=== PATIENT | female | born 1955 | race American Indian/Alaskan Native ===

== ENCOUNTER 2020-08-08 07:05 | Outpatient (REF) | payer OTHER, SELFPAY ==
[2020-08-08 07:26] LABS: COVID-19 Test Negative (Negative)
== END 2020-08-08 07:06 | disposition home or self-care (01) ==
LOC: HO.LAB 07:05
PROVIDERS: PCP Internal Medicine; Visit Provider Internal Medicine
DX: Z20.828 Contact with and (suspected) exposure to other viral communicable diseases (principal)
CPT/HCPCS: 87635

== ENCOUNTER 2020-12-26 13:44 | Outpatient (REF) | payer OTHER, SELFPAY | END 2020-12-26 13:45 | disposition home or self-care (01) | LOC: HO.LAB 13:44 | PROVIDERS: Visit Provider Internal Medicine | DX: Z20.822 Contact with and (suspected) exposure to COVID-19 (principal) | CPT/HCPCS: 36415; C9803; U0003; U0005 ==

== ENCOUNTER 2021-01-16 10:45 | Outpatient (REF) | payer OTHER, SELFPAY | END 2021-01-16 10:46 | disposition home or self-care (01) | LOC: HO.LAB 10:45 | PROVIDERS: Visit Provider Internal Medicine | DX: Z20.822 Contact with and (suspected) exposure to COVID-19 (principal) | CPT/HCPCS: 36415; C9803; U0003; U0005 ==

== ENCOUNTER 2021-02-05 07:49 | Outpatient (REF) | payer OTHER, SELFPAY ==
[2021-02-05 08:12] LABS: COVID-19 Test Negative (Negative)
== END 2021-02-05 07:50 | disposition home or self-care (01) ==
LOC: HO.LAB 07:49
PROVIDERS: Visit Provider Internal Medicine
DX: Z20.822 Contact with and (suspected) exposure to COVID-19 (principal)
CPT/HCPCS: 36415; 87635; C9803

== ENCOUNTER 2022-03-09 15:33 | Emergency (ER) | payer MEDICARE, MEDICAID, SELFPAY ==
[2022-03-09 15:55] VITALS: BP 130/90; PULSE 70; RESP 18; TEMP 36.1; O2SAT 98; BMI 27.3
--- NOTE | 2022-03-09 22:39 | ED.ANIMALBIT ---
HPI - Animal Bite General Chief Complaint: Wound/Laceration Stated Complaint: dog bit on rt hand finger Time Seen by Provider: 03/09/22 22:38 Source: patient Mode of arrival: ambulatory Limitations: language barrier (Albanian-speaking) History of Present Illness MD complaint: animal bite Onset (ago): hour(s) (Prior to arrival) Animal: dog Description of animal: household pet, immunizations UTD and appeared well Mechanism: bite Location - Extremities: left: hand Context: other (She accidentally took the dogs toy ball and this is when the dog bit her) Associated symptoms: none Treatments prior to arrival: irrigation Related Data Patient tetanus UTD: No Previous Rx's Medication Instructions Recorded amoxicillin 875 mg-potassium 1 tab PO BID 10 Days #20 tab 03/09/22 clavulanate 125 mg tablet Allergies Allergy/AdvReac Type Severity Reaction Status Date / Time No Known Allergies Allergy Verified 03/09/22 15:55 [No Known Allergies*] Review of Systems Review of Systems: Constitutional : No Weight loss, No Fever, No Chills, No Night Sweats, No Fatigue, No Malaise ENT/Mouth : No Hearing loss, No Ear Pain, No Nasal Congestion, No Sinus Pain, No Hoarseness, No sore throat, No Rhinorrhea, No Swallowing Difficulty Eyes: No Eye Pain, No Swelling, No Redness, No Foreign Body, No Discharge, No Vision Changes Cardiovascular : No Chest Pain, No SOB, No Dyspnea on Exertion, No Orthopnea, No Edema, No Palpitations Respiratory : No Cough, No Sputum, No Wheezing, No Smoke Exposure, No Dyspnea Gastrointestinal : No Nausea, No Vomiting, No Diarrhea, No Constipation, No abdominal Pain, No Hematochezia, No Melena Genitourinary : no irregular bleeding, No Dysuria, No Urinary Frequency, No Hematuria, No Urinary Incontinence, No Urgency, No Flank Pain, No Urinary Flow Changes, No Hesitancy Musculoskeletal : No joint pain, No Myalgias, No Joint Swelling Skin : + animal bite to left hand, No Skin Lesions, No rash Neuro : No Weakness, No Numbness, No Paresthesias, No Loss of Consciousness, No Dizziness, No Headache Psych : No Anxiety/Panic, No Depression, No SI/HI/AH/VH, No Social Issues, Heme/Lymph: No Bruising, No Bleeding,No Lymphadenopathy Endocrine : No Polyuria, No Polydipsia, No Temperature Intolerance Yes all other systems are reviewed and are negative [facility] Past Medical History Attestation statement: The following information was validated with the patient. Physical Exam ED Vital Signs: Vital Signs - 24 hr 03/09/22 15:55 Temperature 97 F Pulse Rate 70 Respiratory Rate 18 Blood Pressure 130/90 H Pulse Oximetry 98 BMI result Body Mass Index 27.3 vital signs have been reviewed as normal and appeared to be correct. Blood pressure 130/90 Heart rate normal. Respiration rate normal. Temperature normal. Oxygen saturation normal. Appearance: Alert. Oriented X3. No acute distress. Head: Normal external exam. Normocephalic. Atraumatic. Eyes: PERRLA. EOMI. Conjunctiva and sclera normal. Eyelids normal. ENT: Pharynx normal. Uvula midline. Moist mucous membranes. Normal voice. No trismus noted. No drooling noted. No muffled voice noted. Neck: Normal inspection. Neck supple. FROM. No adenopathy. No meningeal signs. CVS: Normal heart rate and rhythm. Heart sound normal. Pulses normal throughout. No murmurs/rales/gallops. Respiratory: No respiratory distress. Painless inspiration. Breath sounds normal. No wheezes/rales/rhonchi noted. Chest nontender. No accessory muscle usage noted or decreased air movement noted. Back: Full range of motion noted. Nontender. Skin: Skin warm and dry. Normal skin color. Normal skin turgor. To left hand at the 2nd to 3rd middle carpal patient has superficial bite/wound no foreign bodies and she already has the scab overlying. No streaking/induration/fluctuance or signs of infection noted. No additional rashes/lesions/lacerations noted. Extremities: Extremities exhibit normal range of motion and nontender. Neuro: Oriented X 3. No motor deficit. No sensory deficit. Reflexes normal. Normal steady gait. No focal neuro deficits noted. CN's II-XII intact bilaterally? Vascular: + radial pulses/+ 2 distal pedal pulses/+2 dorsalis pedis b/l. Normal cap refill. No cyanosis noted to upper extremity nails and lower extremity toes nails. Course Course Course Narrative: 66-year-old female reporting that she needs a tetanus vaccine after she was bit by her friend's dog who is vaccinated to rabies. She denies any thoughts of foreign bodies. She denies any bony tenderness. On exam she has superficial bite. No signs of infection or foreign body she has full range of motion no obvious ligamentous or tendon injury noted. Offered x-ray although patient refused reports that she knows there are no foreign bodies and no broken bones. Therefore at this time will update the patient's tetanus and DC home antibiotics and instructions return if any new or worsening symptoms. Patient understands agrees with this plan. MDM - Animal Bite Medical Records Attestation: I reviewed the patient's medical records. Discharge Plan Discharge Clinical Impression: Dog bite, Vaccine for tetanus toxoid Patient Disposition: Home, Self-Care Instructions: Animal Bite (ED) Prescriptions: New amoxicillin-pot clavulanate 875-125 mg tablet 1 tab PO BID 10 Days Qty: 20 0RF Referrals: Yg Corea III, MD [Primary Care Provider] - 2 days Print Language: Albanian
[2022-03-09] MEDS: Amoxicillin/Potassium Clav 875 MG TABLET PO (22:52)
[2022-03-09] MEDS: Diphth,Pertus(ACell),Tet Adult 0.5 ML SYRINGE IM (22:53)
== END 2022-03-09 22:58 | disposition home or self-care (01) ==
LOC: HO.ED 22:47
PROVIDERS: Emergency Provider Internal Medicine; PCP Internal Medicine
DX: S60.572A Other superficial bite of hand of left hand, initial encounter (principal); S60.512A Abrasion of left hand, initial encounter; S60.571A Other superficial bite of hand of right hand, initial encounter; S60.511A Abrasion of right hand, initial encounter; M79.642 Pain in left hand; M79.641 Pain in right hand; W54.0XXA Bitten by dog, initial encounter; Y93.9 Activity, unspecified; Y92.009 Unspecified place in unspecified non-institutional (private) residence as the place of occurrence of the external cause; Y99.9 Unspecified external cause status
CPT/HCPCS: 90471; 90715; 99284

== ENCOUNTER 2023-03-09 13:17 | Emergency (ER) | payer MEDICARE, MEDICAID, SELFPAY ==
--- NOTE | ~2023-03-09 | CT_ITS ---
EXAMINATION: CT ABDOMEN AND PELVIS WITH CONTRAST CLINICAL INFORMATION: Lower abdominal pain COMPARISON: None available. TECHNIQUE: Multidetector volumetric images were obtained from the superior aspect of the liver through the pubic symphysis following administration 85 mL of Omnipaque 350 intravenous contrast. Sagittal and coronal reformatted images were obtained on the technologist's workstation. Oral contrast: No This CT examination was performed using dose optimization techniques as appropriate, variously including the following: *Automated exposure control *Adjustment of mA and/or kV according to patient size (this includes techniques or standardized protocols for targeted exams where dose is matched to indication/reason for exam; i.e. extremities or head) *Use of iterative reconstruction technique DLP: 443 mGy-cm FINDINGS: LUNG BASES: The visualized lung bases are unremarkable. LIVER, GALLBLADDER, AND BILIARY TREE: The liver is normal in size, shape, and attenuation. No focal hepatic lesion or biliary ductal dilatation is present. The gallbladder is contracted but otherwise unremarkable with no evidence of radiopaque gallstones, gallbladder wall thickening, or obvious pericholecystic inflammatory changes. PANCREAS: Unremarkable. SPLEEN: Unremarkable. ADRENAL GLANDS: Unremarkable. KIDNEYS AND URETERS: The kidneys are normal in size, shape, and attenuation. Benign parapelvic renal cysts are present bilaterally, left greater than right. These need no additional imaging or follow-up. There is a 4 mm benign Bosniak class I left cortical renal cyst present which needs no additional imaging or follow-up. No solid renal masses. No hydronephrosis, hydroureter, or calculi seen. No perinephric stranding. BLADDER: Unremarkable. GASTROINTESTINAL TRACT: The small and large bowel are unremarkable aside from some scattered colonic diverticula without diverticulitis. The appendix is unremarkable. ABDOMINAL WALL: No significant hernia is appreciated. LYMPH NODES: No retroperitoneal lymphadenopathy. VASCULAR: Unremarkable. PELVIC VISCERA: The uterus is not seen. An abnormal adnexal mass or free intraperitoneal fluid is not present. OSSEOUS STRUCTURES: Unremarkable. CT/CT abdomen pelvis w IV con IMPRESSION: A cause for the patient's lower abdominal pain has not been found. Fleischner guidelines were followed.
[2023-03-09 13:52] VITALS: BP 117/87; PULSE 79; RESP 22; TEMP 36.1; O2SAT 96; BMI 26.6
--- NOTE | 2023-03-09 13:53 | ED.ABDPAIN ---
HPI - Abdominal Pain General Stated Complaint: abd pain Related Data Previous Rx's Medication Instructions Recorded amoxicillin 875 mg-potassium 1 tab PO BID 10 days #20 tabs 03/09/22 clavulanate 125 mg tablet Allergies Allergy/AdvReac Type Severity Reaction Status Date / Time No Known Allergies Allergy Verified 03/09/22 15:55 [No Known Allergies*] Course Course Course Narrative: This a rapid medical exam. Deferred additional HPI, ROS, PE to primary provider. 67 yo female pre-diabetes here with abdominal pain around umbilicus radiating to back/diarrhea, chills, nausea/vomiting x1 since 03/05. Initially had alot of diarrhea which is improving but abdominal pain has continued. No recent antibiotic use, recent travel, sick contact, hospitalization. Will check labs, UA, covid screen. VSS Discharge Plan Discharge Prescriptions: No Action amoxicillin-pot clavulanate 875-125 mg tablet 1 tab PO BID 10 Days Qty: 20 0RF
[2023-03-09 14:27] LABS: MANUAL DIFF FLAG NO
[2023-03-09 14:31] LABS: Basophils Absolute Auto 0.1 X10*3/uL (0.0-0.2); Basophils Percent Auto 0.8 % (0-2); Eosinophils Absolute Auto 0.3 X10*3/uL (0.0-0.4); Eosinophils Percent Auto 5.1 % (0-4); Hematocrit 40.3 % (37.0-47.0); Hemoglobin 13.2 g/dl (12.0-16.0); Imm Gran Abs Auto 0.02 X10*3/uL (0.00-0.03); Imm Gran Pct Auto 0.3 % (0.0-0.4); Lymphocytes Absolute Auto 1.7 X10*3/uL (1.2-4.9); Lymphocytes Percent Auto 28.6 % (20-40); Mean Corpuscular HGB Conc 32.8 g/dl (31.0-35.0); Mean Corpuscular Hemoglobin 28.6 pg (27.0-33.0); Mean Corpuscular Volume 87.4 fL (80.0-98.0); Mean Platelet Volume 11.5 fL (9.4-12.3); Monocytes Absolute Auto 0.7 X10*3/uL (0.1-1.2); Monocytes Percent Auto 12.3 % (2-11); Neutrophils Absolute Auto 3.2 x10*3/uL (2.0-8.3); Neutrophils Percent Auto 52.9 % (45-73); Platelet Count 275 X10*3/uL (160-400); Red Blood Count 4.61 X10*6/uL (4.20-5.50); Red Cell Distribution Width 12.9 % (11.0-16.0)
[2023-03-09 14:36] LABS: Appearance Urine Clear; Color Urine Yellow; Glucose Urine UA Negative (Negative); Leukocyte Esterase Urine Negative (Negative); Nitrite Urine Negative (Negative); PH 5.5 (5.0-9.0); Specific Gravity - Urine 1.025 (1.005-1.025); Urine Blood Negative (Negative); Urine Ketones Negative (Negative); Urine Protein Negative (Neg-Trace)
[2023-03-09 14:46] LABS: COVID-19 Test Negative (Negative); IDNOW Serial# BCCEAD1C
[2023-03-09 14:52] LABS: Alanine Aminotransferase 21 U/L (0-31); Albumin Level 4.3 g/dL (3.5-5.0); Alkaline Phosphatase 75 U/L (39-117); Anion Gap 10 (12-20); Aspartate Amino Transferase 20 U/L (5-31); Bilirubin Direct 0.2 mg/dL (0.0-0.5); Bilirubin Total 0.8 mg/dL (0.0-1.0); Blood Urea Nitrogen 13 mg/dL (9-16); Calcium 10.5 mg/dL (8.4-10.2); Carbon Dioxide 29 mmol/L (22-29); Chloride 105 mmol/L (96-108); Creatinine Clr Calc Pharmacy 66.7; Estimated Glomerular Filt Rate > 60; Glucose Random 89 mg/dL (60-115); Lipase 24 U/L (8-78); Potassium 3.9 mmol/L (3.3-5.1); Sodium 140 mmol/L (135-145); Total Protein 7.1 g/dL (6.5-8.0)
[2023-03-09 16:11] VITALS: BP 125/72; PULSE 52; RESP 16; O2SAT 100
[2023-03-09 17:01] VITALS: BP 126/74; PULSE 104; RESP 18; TEMP 37.1; O2SAT 99
--- NOTE | 2023-03-09 17:02 | PC.NURSE ---
Alert and oriented.States has had stomach pain for 3 days with associated diarrhea. States vomited over the weekend x1 but not today. States diarrhea has improved today but is still nauseous. No edema, sob, or chest pain noted. States pain gets worse when bending over. Tender to palpation, positive bowel sounds x 4 quadrents.
--- NOTE | 2023-03-09 17:25 | ED.ABDPAIN ---
HPI - Abdominal Pain General Chief Complaint: Abdominal Pain Stated Complaint: abd pain Time Seen by Provider: 03/09/23 16:11 Source: patient History of Present Illness HPI narrative: Patient states she has had diarrhea and abdominal pain for the past 2-3 days. She describes the pain as low abdominal pain and at times severe. Diarrhea. This morning but the pain has gotten worse. One episode of vomiting when symptoms started but none since. She is able to drink small amounts of liquid but it causes worse pain worse diarrhea. No urinary symptoms No similar symptoms in the past She has had prior colonoscopies which have been normal. Her son has a similar syndrome. Related Data Previous Rx's Medication Instructions Recorded amoxicillin 875 mg-potassium 1 tab PO BID 10 days #20 tabs 03/09/22 clavulanate 125 mg tablet ondansetron 4 mg disintegrating 4 mg PO Q8H #14 tabs 03/09/23 tablet [id number]-[id number]-wbxlpmqo-scop 5 ml PO BID PRN indigestion #50 mL 03/09/23 16.2 mg-0.1037 mg/5 mL (5 mL) elixir Allergies Allergy/AdvReac Type Severity Reaction Status Date / Time No Known Allergies Allergy Verified 03/09/23 13:57 [No Known Allergies*] Review of Systems Comments: No fevers. Positive chills Comments: No chest pain Comments: No cough. No dyspnea Gastrointestinal: Reports as per HPI Genitourinary: Reports no additional female genitourinary complaints Musculoskeletal: Reports no additional musculoskeletal complaints Comments: No rash Comments: No focal weakness. Positive general malaise [facility] Social History Social History Alcohol intake: current Alcohol intake frequency: holidays/special occasions only Use of substances other than those prescribed or required for medical reasons: No Advance Directives: No Physical Exam ED Vital Signs: Vital Signs - 24 hr 03/09/23 13:52 03/09/23 16:11 03/09/23 17:01 Temperature 96.9 F 98.8 F Pulse Rate 79 52 104 H Respiratory Rate 22 H 16 18 Blood Pressure 117/87 125/72 126/74 Pulse Oximetry 96 100 99 Oxygen Delivery Method Room Air Room Air Room Air 03/09/23 18:01 Temperature Pulse Rate 84 Respiratory Rate 18 Blood Pressure 111/67 Pulse Oximetry 99 Oxygen Delivery Method Room Air BMI result Body Mass Index 26.6 Const Other: Awake and alert. No acute distress. Vital signs stable Resp Other: Clear and equal bilaterally without wheezes rales or rhonchi Cardio Other: Regular rate and rhythm without murmurs rubs or gallops GI Other: Soft. Nondistended. Diffusely moderately tender along the whole abdomen. Maximum tenderness left lower quadrant Skin Other: Warm pink and dry with poor turgor Neuro Other: Nonfocal neuro exam Medical Decision Making Medical Decision Making MDM Narrative: Patient with gastroenteritis type symptoms but with more pain and tenderness than expected. Will order a CT scan rule out colitis or diverticulitis. She also clinically appears dehydrated. Will order IV fluids and anti emetics. 17:28. White count is normal. Electrolytes are overall normal. Calcium is 10.5 not clinically significant. Urinalysis is normal. Await CT scan and repeat evaluation 19:27. CT scan shows no obvious abnormalities. Patient is feeling much better on reexamination. She is stable for discharge home with a final diagnosis of abdominal pain secondary to gastroenteritis Lab Data 03/09/23 14:23 03/09/23 14:23 Labs: Lab Results 03/09/23 03/09/23 03/09/23 Range/Units 14:20 14:20 14:23 WBC 6.0 (4.8-10.8) X10*3/uL RBC 4.61 (4.20-5.50) X10*6/uL Hgb 13.2 (12.0-16.0) g/dl Hct 40.3 (37.0-47.0) % MCV 87.4 (80.0-98.0) fL MCH 28.6 (27.0-33.0) pg MCHC 32.8 (31.0-35.0) g/dl RDW 12.9 (11.0-16.0) % Plt Count 275 (160-400) X10*3/uL MPV 11.5 (9.4-12.3) fL Immature Gran % (Auto) 0.3 (0.0-0.4) % Neut % (Auto) 52.9 (45-73) % Lymph % (Auto) 28.6 (20-40) % Tyler % (Auto) 12.3 H (2-11) % Eos % (Auto) 5.1 H (0-4) % Baso % (Auto) 0.8 (0-2) % Lymph # (Auto) 1.7 (1.2-4.9) X10*3/uL Tyler # (Auto) 0.7 (0.1-1.2) X10*3/uL Eos # (Auto) 0.3 (0.0-0.4) X10*3/uL Baso # (Auto) 0.1 (0.0-0.2) X10*3/uL Abs Immat Gran (auto) 0.02 (0.00-0.03) X10*3/uL Absolute Neuts (auto) 3.2 (2.0-8.3) x10*3/uL Absolute Nucleated RBC 0.000 (0.0-0.012) X10*3/uL Nucleated RBC % (auto) 0.0 (0.0-0.2) /100WBC Sodium (135-145) mmol/L Potassium (3.3-5.1) mmol/L Chloride (96-108) mmol/L Carbon Dioxide (22-29) mmol/L Anion Gap (12-20) BUN (9-16) mg/dL Creatinine (0.5-1.4) mg/dL Estim Creat Clear Calc Estimated GFR Random Glucose (60-115) mg/dL Calcium (8.4-10.2) mg/dL Total Bilirubin (0.0-1.0) mg/dL Direct Bilirubin (0.0-0.5) mg/dL AST (5-31) U/L ALT (0-31) U/L Alkaline Phosphatase (39-117) U/L Total Protein (6.5-8.0) g/dL Albumin (3.5-5.0) g/dL Lipase (8-78) U/L Urine Color Yellow Urine Appearance Clear Urine pH 5.5 (5.0-9.0) Ur Specific Avella 1.025 (1.005-1.025) Urine Protein Negative (Neg-Trace) mg/dL Urine Glucose (UA) Negative (Negative) mg/dL Urine Ketones Negative (Negative) mg/dL Urine Blood Negative (Negative) Urine Nitrite Negative (Negative) Ur Leukocyte Esterase Negative (Negative) COVID-19 (IVETT) Negative (Negative) COVID-19 Clin Com See Note 03/09/23 Range/Units 14:23 WBC (4.8-10.8) X10*3/uL RBC (4.20-5.50) X10*6/uL Hgb (12.0-16.0) g/dl Hct (37.0-47.0) % MCV (80.0-98.0) fL MCH (27.0-33.0) pg MCHC (31.0-35.0) g/dl RDW (11.0-16.0) % Plt Count (160-400) X10*3/uL MPV (9.4-12.3) fL Immature Gran % (Auto) (0.0-0.4) % Neut % (Auto) (45-73) % Lymph % (Auto) (20-40) % Tyler % (Auto) (2-11) % Eos % (Auto) (0-4) % Baso % (Auto) (0-2) % Lymph # (Auto) (1.2-4.9) X10*3/uL Tyler # (Auto) (0.1-1.2) X10*3/uL Eos # (Auto) (0.0-0.4) X10*3/uL Baso # (Auto) (0.0-0.2) X10*3/uL Abs Immat Gran (auto) (0.00-0.03) X10*3/uL Absolute Neuts (auto) (2.0-8.3) x10*3/uL Absolute Nucleated RBC (0.0-0.012) X10*3/uL Nucleated RBC % (auto) (0.0-0.2) /100WBC Sodium 140 (135-145) mmol/L Potassium 3.9 (3.3-5.1) mmol/L Chloride 105 (96-108) mmol/L Carbon Dioxide 29 (22-29) mmol/L Anion Gap 10 L (12-20) BUN 13 (9-16) mg/dL Creatinine 0.71 (0.5-1.4) mg/dL Estim Creat Clear Calc 66.7 Estimated GFR > 60 Random Glucose 89 (60-115) mg/dL Calcium 10.5 H (8.4-10.2) mg/dL Total Bilirubin 0.8 (0.0-1.0) mg/dL Direct Bilirubin 0.2 (0.0-0.5) mg/dL AST 20 (5-31) U/L ALT 21 (0-31) U/L Alkaline Phosphatase 75 (39-117) U/L Total Protein 7.1 (6.5-8.0) g/dL Albumin 4.3 (3.5-5.0) g/dL Lipase 24 (8-78) U/L Urine Color Urine Appearance Urine pH (5.0-9.0) Ur Specific Av[place] (1.005-1.025) Urine Protein (Neg-Trace) mg/dL Urine Glucose (UA) (Negative) mg/dL Urine Ketones (Negative) mg/dL Urine Blood (Negative) Urine Nitrite (Negative) Ur Leukocyte Esterase (Negative) COVID-19 (IVETT) (Negative) COVID-19 Clin Com Medications Administered Discontinued Medications Generic Name Dose Route Start Last Admin Trade Name Freq PRN Reason Stop Dose Admin Sodium Chloride 1,000 mls @ 999 mls/hr 03/09/23 17:30 03/09/23 18:00 Ns IV 03/09/23 18:30 999 mls/hr .Q1H1M MARGARET Administration Iohexol 100 ml 03/09/23 17:56 03/09/23 17:56 Iohexol 350 Mg/Ml 100 Ml Infus..Btl IV 03/09/23 17:57 85 ml ONCE ONE Administration Ondansetron HCl 4 mg 03/09/23 17:22 03/09/23 18:00 Ondansetron Hcl 4 Mg/2 Ml Vial IVPUSH 03/09/23 17:23 4 mg ONCE ONE Administration Discharge Plan Discharge Clinical Impression: Gastroenteritis, Abdominal pain Patient Disposition: Home, Self-Care Instructions: Gastroenteritis (ED), Abdominal Pain (ED) Prescriptions: New ondansetron 4 mg tablet,disintegrating 4 mg PO Q8H Qty: 14 0RF [id number]-lwsabp-ecrkgktc-scop 16.2 mg-0.1037 mg/5 mL (5 mL) elixir 5 ml PO BID PRN (Reason: indigestion) Qty: 50 0RF No Action amoxicillin-pot clavulanate 875-125 mg tablet 1 tab PO BID 10 Days Qty: 20 0RF
[2023-03-09] MEDS: iohexoL 350 MG/ML 100 ML INFUS..BTL IV (17:56)
[2023-03-09] MEDS: 0.9 % Sodium Chloride 1,000 ML 999 ML IV (18:00)
[2023-03-09] MEDS: ondansetron HCL 4 MG/2 ML VIAL IVPUSH (18:00)
[2023-03-09 18:01] VITALS: BP 111/67; PULSE 84; RESP 18; O2SAT 99
== END 2023-03-09 19:55 | disposition home or self-care (01) ==
PROVIDERS: Nurse Practitioner Family; Emergency Provider Emergency Medicine; PCP Internal Medicine
DX: K52.9 Noninfective gastroenteritis and colitis, unspecified (principal); R10.30 Lower abdominal pain, unspecified; Z20.822 Contact with and (suspected) exposure to COVID-19
CPT/HCPCS: 74177; 80048; 80076; 81003; 83690; 85025; 87635; 96374; 99284; J2405; Q9967

== ENCOUNTER 2024-09-23 11:21 | Emergency (ER) | payer MEDICARE, SELFPAY ==
--- NOTE | ~2024-09-23 | CT_ITS ---
EXAMINATION: CT HEAD WITHOUT CONTRAST CLINICAL INFORMATION: Headache. Hypertension. COMPARISON: None available. TECHNIQUE: Contiguous axial imaging was performed from the skull base to vertex without intravenous administration of contrast. This CT examination was performed using dose optimization techniques as appropriate, variously including the following: *Automated exposure control *Adjustment of mA and/or kV according to patient size (this includes techniques or standardized protocols for targeted exams where dose is matched to indication/reason for exam; i.e. extremities or head) *Use of iterative reconstruction technique DLP: 668 mGy-cm FINDINGS: No acute intracranial hemorrhage. No mass effect or midline shift. No parenchymal lesion. The negrete-white differentiation is maintained. No extra-axial fluid collection. The ventricles and sulci are unremarkable. The basal cisterns are patent. The calvarium is intact. The visualized paranasal sinuses and mastoid air cells are clear. CT/CT head/brain wo IV con IMPRESSION: No acute intracranial hemorrhage or mass effect. Electronically signed by: Jimbo So MD 09/23/2024 12:[address] [facility]
[2024-09-23 11:25] VITALS: BP 142/85; PULSE 94; RESP 18; TEMP 36.3; O2SAT 99; BMI 28.2
--- NOTE | 2024-09-23 11:26 | ED_ITS ---
HPI - General Adult General Chief complaint: General Medical Stated complaint: wants to check BP Time Seen by Provider: 09/23/24 11:35 Source: patient Mode of arrival: ambulatory Limitations: no limitations History of Present Illness ED Provider: Cortez SEPULVEDA narrative: Patient is a 68-year-old female presenting to the emergency department with complaint of waking with a headache for the past week. States she has been drinking 1-2 glasses of wine at night, so attributed it to that. Last night did not have any wine and still woke with a headache. Also felt mild dizziness and nausea. Denies chest pain, palpitations, dyspnea. Denies vomiting/diarrhea. Checked her blood pressure with a wrist cuff and it was elevated. States headache has improved, is now mild. Also reports she was recently treated for a rash which she feels is not improving. Described as pruritic, around mouth and upper eyelids. Used OTC hydrocortisone cream on face. MD complaint: headache Onset (ago): week(s) Location: head Radiation: non-radiation Severity: mild Quality: aching Exacerbating factors: other (worse in the am) Treatments prior to arrival: none Related Data Previous Rx's ?Medication ?Instructions ?Recorded amoxicillin 875 mg-potassium 1 tab PO BID 10 days #20 tabs 03/09/22 clavulanate 125 mg tablet ondansetron 4 mg disintegrating 4 mg PO Q8H #14 tabs 03/09/23 tablet zfxwpavjr-vjasgudaf-lrrvyhrr-scop 5 ml PO BID PRN indigestion #50 mL 03/09/23 16.2 mg-0.1037 mg/5 mL (5 mL) elixir betamethasone dipropionate 0.05 % 1 appl topical BID PRN rash #15 09/23/24 topical cream grams Allergies Allergy/AdvReac Type Severity Reaction Status Date / Time No Known Allergies Allergy Verified 09/23/24 11:29 [No Known Allergies*] Review of Systems 2 Review of Systems: As per HPI Yes all other systems are reviewed and are negative Constitutional: Constitutional: Reports as per HPI [facility] Social History Social History Alcohol intake: current Alcohol intake frequency: a few times a month Smoked in Last 30 Days: No Use of substances other than those prescribed or required for medical reasons: No Advance Directives: No Advance Directives Information Provided: Yes Do you have a plan to hurt others: No Plan Physical Exam ED Vital Signs: Vital Signs - 24 hr 09/23/24 11:25 09/23/24 13:54 Temperature 97.3 F 97.9 F Pulse Rate 94 59 Respiratory Rate 18 16 Blood Pressure 142/85 H 144/84 H Pulse Oximetry 99 98 Oxygen Delivery Method Room Air Room Air BMI result Body Mass Index 28.2 Vital signs have been reviewed and appear to be correct. Blood pressure mildly elevated. Heart rate normal. Respiratory rate normal. Temperature normal. Oxygen saturation normal. Const General: cooperative, healthy appearing and no acute distress Orientation/consciousness: oriented to person, oriented to place, oriented to time and patient oriented x3 Limitations: no limitations HENMT Head: Yes normocephalic and Yes atraumatic Head images: 2 1. mild erythema 2. mild erythema 3. mild erythema 4. mild erythema Ears: external ears normal General nose exam: Normal external nose present Face and sinus: Yes face symmetric Mouth: oropharynx normal and moist mucous membranes Throat: Yes uvula midline Eyes Pupils: Equal, round and reactive pupils present Neck Neck: Yes normal visual inspection, Yes no meningeal signs and Yes supple Resp Effort & Inspection: normal respiratory effort and able to speak in complete sentences Auscultation: clear to auscultation bilaterally Cardio Rate: regular rate Rhythm: regular rhythm Heart sounds: S1 normal heart sound present and S2 normal heart sound present GI Palpation (GI): Soft to palpation and nontender Auscultation: normoactive bowel sounds General: Yes no CVA tenderness Back/Spine/Pelvis Back: no CVA tenderness Skin General skin exam: elasticity normal and turgor normal Neuro General: oriented to person, oriented to place, oriented to time, patient oriented x3, gait normal, moves all extremities, Normal light touch and pain sensation, no meningeal signs, no focal motor deficits, CN's II-XI intact bilaterally and deep tendon reflexes 2+ bilaterally Cranial nerves: Yes Equal, round and reactive pupils present Cognition (Neuro): normal cognition Gait exam (Neuro): Normal gait present Motor exam (neuro): 5/5 motor strength present throughout, Pronator motor function not present, no tremor noted, Normal motor muscle tone present throughout and Motor abnormalities not present Extrem General: Yes full ROM, Yes no pedal edema and Yes no calf tenderness Psych Mental Status: mental status grossly normal Affect: normal affect Thought process: Normal thought process present Course Course Course Narrative: This is a Rapid Medical Examination (RME) performed by Claudia Harris PA-C in triage. Full HPI, ROS, assessment and treatment plan per primary provider in the Main ED. 68 yo female here for eval of elevated BP at home around 0830 this morning. BP was 145/100. at that time, she had a headache, felt dizzy and nauseaous. no OTC pain meds. has a slight LOVE at present. no hx of HTN. no dizziness, chest pain, palpitations, SOB, vision changes. also reports rash x2 weeks, now moving to her eyes + BP wnl. well appearing. Plan: blood work, ekg Medical Decision Making Medical Decision Making [facility] Narrative: Patient is a 68-year-old female presenting to the emergency department with complaint of waking with a headache for the past week. On exam patient is awake, A+Ox3, VS WNL, afebrile, normal neurological exam without focal deficits, physical exam findings as above. Given reported symptoms and physical exam findings, initial differential includes essential hypertension, tension headache, electrolyte abnormality. Less likely pseudotumor, SAH/ICH, CO exposure but will obtain CT head, check carboxyhemoglobin. Do not suspect acute glaucoma, carotid artery dissection, encephalitis, meningitis, preeclampsia, temporal arteritis/giant cell arteritis. Labs unremarkable, carboxyhemoglobin negative. CT head notable for no evidene of ICH or mass. My interpretation is in agreement with the radiologist's interpretation. Results discussed with patient and all questions answered. Will defer blood pressure management to PCP, as patient not significantly hypertensive here. Instructed patient to begin checking BP at home daily and documenting results. Will send prescription for betamethasone for rash to face, and discussed with patient that OTC hydrocortisone cream is too high of a strength to use on her face. Return precautions discussed at bedside. Patient verbalized understanding of and agreement with plan. Differential Diagnosis Differential Diagnoses: The differential diagnosis associated with the presentation includes As per [facility] Admission/Observation Consideration of admission/observation: Escalation of care including admission/observation considered Patient would have been admitted to the hospital had their work up had any findings where hospital admission was appropriate and their clinical presentation warranted hospital admission. Lab Data [facility] Lab Attestation statement: I reviewed the patient's lab results. As per [facility] 09/23/24 12:10 09/23/24 12:10 Labs: Lab Results 09/23/24 09/23/24 Range/Units 12:10 13:17 WBC 5.0 (4.8-10.8) X10*3/uL RBC 4.57 (4.20-5.50) X10*6/uL Hgb 13.4 (12.0-16.0) g/dl Hct 39.9 (37.0-47.0) % MCV 87.3 (80.0-98.0) fL MCH 29.3 (27.0-33.0) pg MCHC 33.6 (31.0-35.0) g/dl RDW 12.9 (11.0-16.0) % Plt Count 268 (160-400) X10*3/uL MPV 11.3 (9.4-12.3) fL Immature Gran % (Auto) 0.2 (0.0-0.4) % Neut % (Auto) 42.3 L (45-73) % Lymph % (Auto) 36.6 (20-40) % [place] % (Auto) 12.5 H (2-11) % Eos % (Auto) 7.2 H (0-4) % Baso % (Auto) 1.2 (0-2) % Lymph # (Auto) 1.8 (1.2-4.9) X10*3/uL [place] # (Auto) 0.6 (0.1-1.2) X10*3/uL Eos # (Auto) 0.4 (0.0-0.4) X10*3/uL Baso # (Auto) 0.1 (0.0-0.2) X10*3/uL Abs Immat Gran (auto) 0.01 (0.00-0.03) X10*3/uL Absolute Neuts (auto) 2.1 (2.0-8.3) x10*3/uL Absolute Nucleated RBC 0.000 (0.0-0.012) X10*3/uL Nucleated RBC % (auto) 0.0 (0.0-0.2) /100WBC Carboxyhemoglobin % 2.7 % Sodium 141 (135-145) mmol/L Potassium 3.6 (3.3-5.1) mmol/L Chloride 106 (96-108) mmol/L Carbon Dioxide 26 (22-29) mmol/L Anion Gap 13 (12-20) BUN 12 (9-16) mg/dL Creatinine 0.75 (0.5-1.4) mg/dL Estim Creat Clear Calc 64.0 Estimated GFR > 60 Random Glucose 100 (60-115) mg/dL Calcium 10.5 H (8.4-10.2) mg/dL Magnesium 2.2 (1.6-2.6) mg/dL Total Bilirubin 1.0 (0.0-1.0) mg/dL AST 24 (5-31) U/L ALT 20 (0-31) U/L Alkaline Phosphatase 74 (39-117) U/L Troponin I High Sens < 2.7 (<3.5-17.0) ng/L Total Protein 7.0 (6.5-8.0) g/dL Albumin 4.1 (3.5-5.0) g/dL Ethyl Alcohol < 10 mg/dL Independent Interpretation I performed an independent interpretation of an: CT Scan Interpretation: No evidence of ICH or lesion on CT head. Radiology Impression Discussion of test interpretation with radiology: I have reviewed the radiologist's reading. Radiologist Impression: CT/CT head/brain wo IV con IMPRESSION: No acute intracranial hemorrhage or mass effect External Record Review External record reviewed: Inpatient record, Office record and Outpatient record Prescription Management I considered prescription management with: Other Discharge Plan Discharge Clinical Impression: Headache, Rash and other nonspecific skin eruption Patient Disposition: Home, Self-Care Instructions: Acute Headache (DC), Acute Rash (ED) Additional Instructions: You were evaluated in the emergency department today for headache and elevated blood pressure. Your blood pressure readings were mildly elevated in the emergency department. We recommend that you begin checking your blood pressure at home at least once per day and recording the readings to discuss with your primary care provider. The CT scan of your brain did not show evidence of any bleeding or mass. Your labs were reassuring. You are being prescribed a topical steroid cream for the rash on your face. DO NOT APPLY [id number] HYDROCORTISONE CREAM TO YOUR FACE, IT IS TOO STRONG. Thigh primary care provider this week to schedule follow-up appointment. Return to the emergency department if you develop worsening or persistent headaches, difficulty walking or speaking, dizziness or fainting or any other concerning symptoms. Prescriptions: New betamethasone dipropionate 0.05 % cream 1 appl topical BID PRN (Reason: rash) Qty: 15 0RF No Action amoxicillin-pot clavulanate 875-125 mg tablet 1 tab PO BID 10 Days Qty: 20 0RF ondansetron 4 mg tablet,disintegrating 4 mg PO Q8H Qty: 14 0RF tnobxvyxf-lnttmt-xmpcmphd-scop 16.2 mg-0.1037 mg/5 mL (5 mL) elixir 5 ml PO BID PRN (Reason: indigestion) Qty: 50 0RF Print Language: Sri Lankan
--- NOTE | 2024-09-23 11:30 | ECG_ITS ---
Test Reason : ELEVATED BP Blood Pressure : / mmHG Vent. Rate : 065 BPM Atrial Rate : 065 BPM P-R Int : 140 ms QRS Dur : 090 ms QT Int : 394 ms P-R-T Axes : 019 003 011 degrees QTc Int : 409 ms Normal sinus rhythm Normal ECG No previous ECGs available Referred By: Yuly Harris Electronically Signed By:PLACIDO BENITES
[2024-09-23 12:13] LABS: MANUAL DIFF FLAG NO
[2024-09-23 12:17] LABS: Basophils Absolute Auto 0.1 X10*3/uL (0.0-0.2); Basophils Percent Auto 1.2 % (0-2); Eosinophils Absolute Auto 0.4 X10*3/uL (0.0-0.4); Eosinophils Percent Auto 7.2 % (0-4); Hematocrit 39.9 % (37.0-47.0); Hemoglobin 13.4 g/dl (12.0-16.0); Imm Gran Abs Auto 0.01 X10*3/uL (0.00-0.03); Imm Gran Pct Auto 0.2 % (0.0-0.4); Lymphocytes Absolute Auto 1.8 X10*3/uL (1.2-4.9); Lymphocytes Percent Auto 36.6 % (20-40); Mean Corpuscular HGB Conc 33.6 g/dl (31.0-35.0); Mean Corpuscular Hemoglobin 29.3 pg (27.0-33.0); Mean Corpuscular Volume 87.3 fL (80.0-98.0); Mean Platelet Volume 11.3 fL (9.4-12.3); Monocytes Absolute Auto 0.6 X10*3/uL (0.1-1.2); Monocytes Percent Auto 12.5 % (2-11); Neutrophils Absolute Auto 2.1 x10*3/uL (2.0-8.3); Neutrophils Percent Auto 42.3 % (45-73); Platelet Count 268 X10*3/uL (160-400); Red Blood Count 4.57 X10*6/uL (4.20-5.50); Red Cell Distribution Width 12.9 % (11.0-16.0)
[2024-09-23 12:32] LABS: Alanine Aminotransferase 20 U/L (0-31); Albumin Level 4.1 g/dL (3.5-5.0); Alkaline Phosphatase 74 U/L (39-117); Anion Gap 13 (12-20); Aspartate Amino Transferase 24 U/L (5-31); Blood Urea Nitrogen 12 mg/dL (9-16); Calcium 10.5 mg/dL (8.4-10.2); Carbon Dioxide 26 mmol/L (22-29); Chloride 106 mmol/L (96-108); Estimated Glomerular Filt Rate > 60; Ethanol < 10 mg/dL; Glucose Random 100 mg/dL (60-115); Magnesium 2.2 mg/dL (1.6-2.6); Potassium 3.6 mmol/L (3.3-5.1); Sodium 141 mmol/L (135-145)
[2024-09-23 12:41] LABS: Troponin-I High Sensitivity < 2.7 ng/L (<3.5-17.0)
[2024-09-23 13:20] LABS: Carbon Monoxide POC 2.7 %
[2024-09-23 13:20] LABS: Carbon Monoxide Refer to POC result
[2024-09-23 13:54] VITALS: BP 144/84; PULSE 59; RESP 16; TEMP 36.6; O2SAT 98
[2024-09-23 14:11] VITALS: BP 144/84; PULSE 59; RESP 16; TEMP 36.6; O2SAT 98
== END 2024-09-23 14:13 | disposition home or self-care (01) ==
PROVIDERS: Physician Assistant Medical; Registered Nurse Emergency; Emergency Provider Emergency Medicine
DX: R51.9 Headache, unspecified (principal); R21 Rash and other nonspecific skin eruption
CPT/HCPCS: 36415; 70450; 80053; 80307; 82375; 83735; 84484; 85025; 93005; 99284

== ENCOUNTER → 2024-09-23 11:30 | Outpatient (BNV) | payer MEDICARE, SELFPAY | PROVIDERS: Emergency Provider Emergency Medicine; Visit Provider Internal Medicine | DX: R03.0 Elevated blood-pressure reading, without diagnosis of hypertension (principal) | CPT/HCPCS: 93010 ==

== ENCOUNTER 2024-10-25 10:12 | Emergency (ER) | payer MEDICARE, SELFPAY ==
[2024-10-25 10:16] VITALS: BP 149/71; PULSE 90; RESP 18; TEMP 36.9; O2SAT 97; BMI 27.4
[2024-10-25 10:36] LABS: Basophils Absolute Auto 0.1 X10*3/uL (0.0-0.2); Basophils Percent Auto 0.8 % (0-2); Eosinophils Absolute Auto 0.3 X10*3/uL (0.0-0.4); Eosinophils Percent Auto 3.5 % (0-4); Hematocrit 39.8 % (37.0-47.0); Hemoglobin 13.4 g/dl (12.0-16.0); Imm Gran Abs Auto 0.02 X10*3/uL (0.00-0.03); Imm Gran Pct Auto 0.3 % (0.0-0.4); Lymphocytes Absolute Auto 1.3 X10*3/uL (1.2-4.9); Lymphocytes Percent Auto 18.1 % (20-40); MANUAL DIFF FLAG NO; Mean Corpuscular HGB Conc 33.7 g/dl (31.0-35.0); Mean Corpuscular Hemoglobin 29.6 pg (27.0-33.0); Mean Corpuscular Volume 87.9 fL (80.0-98.0); Monocytes Absolute Auto 0.8 X10*3/uL (0.1-1.2); Monocytes Percent Auto 10.9 % (2-11); Neutrophils Absolute Auto 4.9 x10*3/uL (2.0-8.3); Neutrophils Percent Auto 66.4 % (45-73); Platelet Count 286 X10*3/uL (160-400); Red Blood Count 4.53 X10*6/uL (4.20-5.50); Red Cell Distribution Width 13.3 % (11.0-16.0); White Blood Count 7.4 X10*3/uL (4.8-10.8)
[2024-10-25 10:45] LABS: IDNOW Serial# 58CA691E; Strep A Nucleic Acid Negative (Negative)
[2024-10-25 10:53] LABS: Alanine Aminotransferase 28 U/L (0-31); Albumin Level 4.3 g/dL (3.5-5.0); Alkaline Phosphatase 79 U/L (39-117); Anion Gap 13 (12-20); Aspartate Amino Transferase 24 U/L (5-31); Bilirubin Total 0.4 mg/dL (0.0-1.0); Blood Urea Nitrogen 17 mg/dL (9-16); Calcium 9.5 mg/dL (8.4-10.2); Carbon Dioxide 23 mmol/L (22-29); Chloride 109 mmol/L (96-108); Creatinine Clr Calc Pharmacy 62.4; Estimated Glomerular Filt Rate > 60; Glucose Random 134 mg/dL (60-115); Potassium 4.3 mmol/L (3.3-5.1); Sodium 141 mmol/L (135-145); Total Protein 7.5 g/dL (6.5-8.0)
--- NOTE | 2024-10-25 11:04 | ED.GENADULT ---
HPI - General Adult General Chief complaint: Upper Respiratory Symptoms Stated complaint: bad cold effecting eyes Time Seen by Provider: 10/25/24 11:00 Source: patient, RN notes reviewed and old records reviewed Mode of arrival: ambulatory Limitations: no limitations History of Present Illness ED Provider: Cortez SEPULVEDA narrative: Patient is a 68-year-old female presenting to the emergency department with complaint of congestion, sinus pain, sore throat and nonproductive cough for the past few days, states symptoms worsened yesterday. This morning she woke and noted redness to her left eye, states the redness has increased since she 1st noticed it, complains of mild pain. Denies any known injury or trauma to her eye. Denies blurred vision, double vision or other visual changes. Denies fevers. Denies hemoptysis. Denies chest pain or palpitations. MD complaint: Congestion, sinus pain, eye redness Onset (ago): day(s) Treatments prior to arrival: none Related Data Previous Rx's ?Medication ?Instructions ?Recorded amoxicillin 875 mg-potassium 1 tab PO BID 10 days #20 tabs 03/09/22 clavulanate 125 mg tablet ondansetron 4 mg disintegrating 4 mg PO Q8H #14 tabs 03/09/23 tablet utoypnhzq-vwjqhtiap-uaqbxqwx-scop 5 ml PO BID PRN indigestion #50 mL 03/09/23 16.2 mg-0.1037 mg/5 mL (5 mL) elixir betamethasone dipropionate 0.05 % 1 appl topical BID PRN rash #15 09/23/24 topical cream grams azithromycin 250 mg tablet See Rx Instructions PO .COMPLEX #6 10/25/24 tabs benzonatate 100 mg capsule 100 mg PO TID PRN cough #20 caps 10/25/24 Allergies Allergy/AdvReac Type Severity Reaction Status Date / Time No Known Allergies Allergy Verified 10/25/24 10:20 [No Known Allergies*] Review of Systems Review of Systems: As per HPI Yes all other systems are reviewed and are negative Constitutional: Constitutional: Reports as per HPI [facility] Social History Social History Alcohol intake: current Alcohol intake frequency: a few times a month Advance Directives: No Advance Directives Information Provided: No Do you have a plan to hurt others: No Plan Physical Exam ED Vital Signs: Vital Signs - 24 hr 10/25/24 10:16 Temperature 98.5 F Pulse Rate 90 Respiratory Rate 18 Blood Pressure 149/71 H Pulse Oximetry 97 Oxygen Delivery Method Room Air BMI result Body Mass Index 27.4 Vital signs have been reviewed and appear to be correct. Blood pressure elevated. Heart rate normal. Respiratory rate normal. Temperature normal. Oxygen saturation normal. Const General: cooperative, healthy appearing and no acute distress Orientation/consciousness: oriented to person, oriented to place, oriented to time and patient oriented x3 Limitations: no limitations HENMT Head: Yes normocephalic and Yes atraumatic Ears: external ears normal, TM's normal bilaterally and EAC's normal General nose exam: Normal external nose present and Normal nasal mucous membranes and turbinates present Face and sinus: Yes face symmetric and Yes sinus tenderness (Bilateral frontal and maxillary) Mouth: Normal oral and palatal mucosa present, lip normal, tongue normal, oropharynx normal and moist mucous membranes Throat: Yes tonsils normal, Yes uvula midline, No peritonsillar mass and No uvular edema Eyes Other: IOPS: OD 17, OS 18 Visual Rojas: normal visual rojas by confrontation Alignment and Position: alignment normal and position normal Periorbital: periorbital findings normal Eyelids: Yes eyelids normal Conjunctivae: conjunctival abnormal left subconjunctival hemorrhage (medial aspect ) Corneas: corneas normal and fluorescein used Pupils: Equal, round and reactive pupils present EOM: EOMs intact bilaterally Neck Neck: Yes normal visual inspection and Yes supple Resp Effort & Inspection: normal respiratory effort and able to speak in complete sentences Auscultation: clear to auscultation bilaterally Cardio Rate: regular rate Rhythm: regular rhythm Heart sounds: S1 normal heart sound present and S2 normal heart sound present GI Palpation (GI): Soft to palpation and nontender Auscultation: normoactive bowel sounds General: Yes no CVA tenderness Back/Spine/Pelvis Back: no CVA tenderness Skin General skin exam: elasticity normal and turgor normal Neuro General: oriented to person, oriented to place, oriented to time, patient oriented x3, moves all extremities, no focal motor deficits and CN's II-XI intact bilaterally Cranial nerves: Yes Equal, round and reactive pupils present Cognition (Neuro): normal cognition Extrem General: Yes full ROM, Yes no pedal edema and Yes no calf tenderness Psych Mental Status: mental status grossly normal Affect: normal affect Thought process: Normal thought process present Medical Decision Making Medical Decision Making [facility] Narrative: Patient is a 68-year-old female presenting to the emergency department with complaint of congestion, sinus pain, sore throat and nonproductive cough for the past few days, states symptoms worsened yesterday. On exam patient is awake, A+Ox3, VS WNL, afebrile, normal neurological exam without focal deficits, physical exam findings as above. Given reported symptoms and physical exam findings, initial differential includes but is not limited to viral illness, COVID, flu, RSV, strep pharyngitis, rhinosinusitis, subconjunctival hemorrhage. Do not suspect acute angle closure glaucoma, retinal detachment. Strep and viral serology negative. Labs grossly within normal limits. Discussed with patient that her subconjunctival hemorrhage will resolve on its own in a few days, advised her not to rub her eye. Will send prescription for azithromycin for sinusitis. Advised patient to use nasal saline spray as well. Will also send prescription for benzonatate for cough. Follow up with PCP as needed. Return precautions discussed at bedside. Patient verbalized understanding of and agreement with plan. Differential Diagnosis Differential Diagnoses: The differential diagnosis associated with the presentation includes As per [facility] Lab Data [facility] Lab Attestation statement: I reviewed the patient's lab results. As per [facility] 10/25/24 10:31 10/25/24 10:31 Labs: Lab Results 10/25/24 Range/Units 10:31 WBC 7.4 (4.8-10.8) X10*3/uL RBC 4.53 (4.20-5.50) X10*6/uL Hgb 13.4 (12.0-16.0) g/dl Hct 39.8 (37.0-47.0) % MCV 87.9 (80.0-98.0) fL MCH 29.6 (27.0-33.0) pg MCHC 33.7 (31.0-35.0) g/dl RDW 13.3 (11.0-16.0) % Plt Count 286 (160-400) X10*3/uL MPV 11.0 (9.4-12.3) fL Immature Gran % (Auto) 0.3 (0.0-0.4) % Neut % (Auto) 66.4 (45-73) % Lymph % (Auto) 18.1 L (20-40) % [place] % (Auto) 10.9 (2-11) % Eos % (Auto) 3.5 (0-4) % Baso % (Auto) 0.8 (0-2) % Lymph # (Auto) 1.3 (1.2-4.9) X10*3/uL [place] # (Auto) 0.8 (0.1-1.2) X10*3/uL Eos # (Auto) 0.3 (0.0-0.4) X10*3/uL Baso # (Auto) 0.1 (0.0-0.2) X10*3/uL Abs Immat Gran (auto) 0.02 (0.00-0.03) X10*3/uL Absolute Neuts (auto) 4.9 (2.0-8.3) x10*3/uL Absolute Nucleated RBC 0.000 (0.0-0.012) X10*3/uL Nucleated RBC % (auto) 0.0 (0.0-0.2) /100WBC Sodium 141 (135-145) mmol/L Potassium 4.3 (3.3-5.1) mmol/L Chloride 109 H (96-108) mmol/L Carbon Dioxide 23 (22-29) mmol/L Anion Gap 13 (12-20) BUN 17 H (9-16) mg/dL Creatinine 0.76 (0.5-1.4) mg/dL Estim Creat Clear Calc 62.4 Estimated GFR > 60 Random Glucose 134 H (60-115) mg/dL Calcium 9.5 D (8.4-10.2) mg/dL Total Bilirubin 0.4 (0.0-1.0) mg/dL AST 24 (5-31) U/L ALT 28 (0-31) U/L Alkaline Phosphatase 79 (39-117) U/L Total Protein 7.5 (6.5-8.0) g/dL Albumin 4.3 (3.5-5.0) g/dL Influenza Type A (PCR) NEGATIVE (Negative) Influenza Type B (PCR) NEGATIVE (Negative) RSV RNA Qual (PCR) NEGATIVE (Negative) SARS-CoV-2 RNA (RT-PCR) NEGATIVE (Negative) S. pyogenes GrpA KARLEY Negative (Negative) External Record Review External record reviewed: Inpatient record, Office record and Outpatient record Prescription Management I considered prescription management with: Antibiotic Discharge Plan Discharge Clinical Impression: Acute rhinosinusitis MARGARET (subconjunctival hemorrhage) Qualifiers: Laterality: left Qualified Code(s): H11.32 - Conjunctival hemorrhage, left eye Patient Disposition: Home, Self-Care Instructions: Subconjunctival Hemorrhage (ED), Rhinosinusitis (DC) Additional Instructions: You are being treated for sinusitis with a course of antibiotics, complete the full course as prescribed even if symptoms improve. You were also noted to have a subconjunctival hemorrhage in your left eye. Avoid touching or rubbing her eye, but you can apply a cool or warm compress to the eye for 10-15 minutes several times daily. You can also use ywvv-swg-vtisukc lubricant eyedrops as needed for comfort. You are being prescribed benzonatate for cough, use this as prescribed and keep out of the reach of children. Follow-up with your primary care provider as needed. Return to the emergency department if you develop new or concerning symptoms. Prescriptions: New azithromycin 250 mg tablet See Rx Instructions .ROUTE .COMPLEX Qty: 6 0RF Rx Instructions: For 250 mg dose pack: take 500 mg today (day 1), then 250 mg for 4 days (days 2-5) benzonatate 100 mg capsule 100 mg PO TID PRN (Reason: cough) Qty: 20 0RF No Action amoxicillin-pot clavulanate 875-125 mg tablet 1 tab PO BID 10 Days Qty: 20 0RF ondansetron 4 mg tablet,disintegrating 4 mg PO Q8H Qty: 14 0RF ehbhjeghe-lbsknk-ledmyuza-scop 16.2 mg-0.1037 mg/5 mL (5 mL) elixir 5 ml PO BID PRN (Reason: indigestion) Qty: 50 0RF betamethasone dipropionate 0.05 % cream 1 appl topical BID PRN (Reason: rash) Qty: 15 0RF Print Language: Ecuadorean
[2024-10-25 11:21] LABS: Influenza A PCR NEGATIVE (Negative); Influenza B PCR NEGATIVE (Negative); Resp Syncy Virus RNA Qual PCR NEGATIVE (Negative); SARS COV2 PCR INHOUSE NEGATIVE (Negative)
[2024-10-25] MEDS: Fluorescein Sodium STRIP 1 STRIP EYE-LEFT (11:56)
[2024-10-25 12:15] VITALS: BP 120/84; PULSE 69; RESP 16; TEMP 36.9; O2SAT 98
[2024-10-25 12:37] VITALS: BP 120/84; PULSE 69; RESP 16; TEMP 36.9; O2SAT 98
== END 2024-10-25 12:38 | disposition home or self-care (01) ==
PROVIDERS: Emergency Provider Emergency Medicine; PCP Internal Medicine
DX: J01.80 Other acute sinusitis (principal); H11.32 Conjunctival hemorrhage, left eye; J02.9 Acute pharyngitis, unspecified; R05.9 Cough, unspecified; Z03.818 Encounter for observation for suspected exposure to other biological agents ruled out
CPT/HCPCS: 0241U; 36415; 80053; 85025; 87651; 99283